=== PATIENT | female | born 1950 | race Caucasian/White ===

== ENCOUNTER 2020-11-20 13:07 | Day surgery (SDC) | payer OTHER, SELFPAY ==
[2020-11-16 07:36] VITALS: BMI 25.0
[2020-11-20] VITALS (19 sets, daily range): BP systolic 99–130; BP diastolic 58–102; PULSE 55–80; RESP 10–20; TEMP 36.3–37.5; O2SAT 93–100; BMI 25.0
--- NOTE | 2020-11-20 | PATH_ITS ---
[facility] Accession Number: [id number] . 01 Material submitted: . gallbladder - GALLBLADDER AND CONTENTS . 01 Clinical history: . SDC . 02 Diagnosis: Gallbladder and Contents, Cholecystectomy: Cholelithiasis. No evidence of neoplasm. [facility] 11/22/2020 1057 Local . 02 Electronically signed: . Wes Hamlin MD, PhD, Pathologist NPI- [id number] . 01 Gross description: . The specimen is received in formalin, labeled gallbladder and contents and consists of an 8.5 x 3.5 x 3.2 cm intact gallbladder with a 0.2 cm in diameter cystic duct. The serosa is green-salas and smooth. Opening reveals green viscous bile with multiple brown multifaceted choleliths ranging from 0.2-1.5 cm. The mucosa is farr-green and velvety, and the wall thickness measures 0.1 cm. Fund Controller sections are submitted, to include the en face cystic duct margin (blue), in cassette A1. ([id number]) /[facility] 11/21/2020 1035 Local . 02 Pathologist provided ICD-10: K80.50 . 02 CPT . 836185 Performed at: 01 [facility] [address], [place], [place] [id number] MD Ludwin Hill MD Phone: [phone] Performed at: 02 [facility] [address] [place], [place] [id number] MD Lo Flores MD Phone: [phone]
[2020-11-20 14:01] LABS: COVID19 -Nasal RAPID Negative
[2020-11-20] MEDS: LACTATED RINGERS 1,000 ML 42 ML IV (14:32)
[2020-11-20] MEDS: ACETAMINOPHEN 325 MG TABLET 975 MG PO (14:37)
--- NOTE | 2020-11-20 14:47 | PM.PREOP ---
Pre-operative Note Interval Note History & Physical reviewed/Exam performed by Physician: Yes Changes to H&P: No
[2020-11-20] MEDS: levoFLOXacin 500 MG/100 ML PIGGYBACK 100 MG IV (15:15)
--- NOTE | 2020-11-20 15:32 | SUR.OPER ---
Supine on padded OR bed, head on pillow, safety belt at thigh, left arm padded and tucked at side. Right arm secured on padded arm board <90 degrees abduction. Legs uncrossed. Padded footboard in place. Tape over blanket to secure lower legs.
[2020-11-20] MEDS: BUPIVACAINE 0.25% (PF) VIAL 30 ML INJ (15:40)
--- NOTE | 2020-11-20 16:20 | P.OP_ITS ---
Operative Date/Time/Diagnoses Date of procedure: 11/20/20 Time of procedure: 16:20 Pre-op diagnosis: Biliary colic Post-op diagnosis: same Procedure & Clinicians Procedure: Laparoscopic cholecystectomy Same procedure as scheduled: Yes Indications: Biliary colic Surgeon: Kevin Luna Click Yes if Unassisted: Yes Anesthesia Type: General Operative Notes Findings: Critical view of safety, gallbladder with stones Specimen(s): other Prosthetic devices, grafts, tissues, transplants, or devices: Gallbladder Estimated Blood Loss (mL): 40 Procedure in detail: The patient was placed supine on the table and bilateral lower extremity compression devices were applied. Anesthesia was induced they were intubated with an endotracheal tube and received 2g of Ancef. A time-out was performed. They were prepped and draped in sterile fashion. An infraumbilical incision was made, the umbilical stalk was elevated and the fascia was sharply incised entering the abdomen atraumatically. A blunt tip 12mm balloon trocar was then inserted, pneumoperitoneum was established and inspection of the abdomen demonstrated no evidence of injury. They were placed head up and right side up and then a 11 mm port was placed high in the epigastrium and two 5mm in the right upper quadrant. Gallbladder was inflamed with some flimsy adhesions between the omentum and the gallbladder were taken down carefully. Gallbladder was grasped by the fundus and retracted over the l iver and retracted laterally by the infundibulum. Using electrocautery the lateral plane between the gallbladder and the liver was opened towards the fundus. The gallbladder was then retracted laterally and the medial plane was developed in the same manner. With the gallbladder mobilized the bottom of the cystic plate was visualized. The hepatocystic triangle was meticulosly skeletonized using hook electrocautery of all fat and fibrous tissue from both the front and the back. Only two structures were then clearly seen entering the gallbladder the cystic duct and the cystic artery. With the critical view of safety fully established the cystic duct was clipped twice proximally and once distally using the 10 mm clip applied under direct visualization and then sharply divided. The cystic artery was divided in the same fashion. The gallbladder was removed from the liver bed using electro cautery. The liver bed was then inspected for hemostasis and this was achieved. The abdomen was irrigated with sterile saline and inspection was made that showed the clips in good position. The specimen was removed using Endo-Catch. The abdomen was desufflated. The umbilical fascia was closed with 0 Vicryl in a [id number]-[id number] fashion under direct visualization. Skin incisions were irrigated and closed with 4-0 Monocryl. 30 ml of 0.25% bupivacaine was infiltrated into the subcutaneous tissue of the incisions. The wounds were sealed with Dermabond. Patient emerged from anesthesia was extubated and transferred to recovery in stable condition. The sponge and instrument count at the end of the operation was correct. Complications: none Post-operative Condition: stable Disposition: same day surgery
[2020-11-20] MEDS: ONDANSETRON 4 MG/2 ML INJ IV ×2 (16:24→16:55)
[2020-11-20] MEDS: fentaNYL 100 MCG/2 ML INJ IV ×4 (16:25→16:50)
[2020-11-20] MEDS: HYDROMORPHONE 2 MG INJ IV ×4 (17:01→17:21)
[2020-11-20] MEDS: OXYCODONE IR 5 MG TABLET PO ×2 (17:18→17:41)
[2020-11-20] MEDS: HALOPERIDOL 5 MG/ML VIAL 2 MG IV (17:34)
--- NOTE | 2020-11-20 18:37 | SUR.PHASEII ---
Drsg's dry and intact. Ice remains on abd. Dr Luna notified to change prescription to [facility] as [facility] is closed. Pt sleeping intermittently. Ice chips given.
--- NOTE | 2020-11-20 19:09 | SUR.PHASEII ---
Assumed care from previous RN. Patient resting quietly in stretcher on her left side; vss. Dressings to abdomen x 4 clean, dry and intact. at pharmacy picking up prescriptions. Encouraged patient to sit up and move around some due to pending discharge. Patient rates pain a 4/10 with mild nausea. Explained to patient that abdominal pain would be expected and that she might have pain for several days due to surgery. V/U.
--- NOTE | 2020-11-20 19:41 | SUR.PHASEII ---
Dicharged patient in stable condition with to home. All discharge instructions reviewed with and patient. To car viai wheelchair.
--- NOTE | 2020-12-06 09:44 | P.OP_ITS ---
Operative Date/Time/Diagnoses Date of procedure: 12/04/20 Time of procedure: 09:45 Pre-op diagnosis: Biliary colic Post-op diagnosis: same Procedure & Clinicians Procedure: Laparoscopic cholecystectomy Same procedure as scheduled: Yes Indications: Biliary colic Surgeon: Kevin Luna Operative Notes Findings: Critical view of safety. Chronic cholecystitis Estimated Blood Loss (mL): 30 Procedure in detail: The patient was placed supine on the table and bilateral lower extremity compression devices were applied. Anesthesia was induced they were intubated with an endotracheal tube and received 2g of Ancef. A time-out was performed. They were prepped and draped in sterile fashion. An infraumbilical incision was made, the umbilical stalk was elevated and the fascia was sharply incised entering the abdomen atraumatically. A blunt tip 12mm balloon trocar was then inserted, pneumoperitoneum was established and inspection of the abdomen demonstrated no evidence of injury. They were placed head up and right side up and then a 11 mm port was placed high in the epigastrium and two 5mm in the right upper quadrant. There were adhesions between the omentum and the gallbladder that were taken down carefully consistent with a history of chronic cholecystitis. Gallbladder was grasped by the fundus and retracted over the liver and retracted laterally by the infundib ulum. Using electrocautery the lateral plane between the gallbladder and the liver was opened towards the fundus. The gallbladder was then retracted laterally and the medial plane was developed in the same manner. With the gallbladder mobilized the bottom of the cystic plate was visualized. The hepatocystic triangle was meticulosly skeletonized using hook electrocautery of all fat and fibrous tissue from both the front and the back. Only two structures were then clearly seen entering the gallbladder the cystic duct and the cystic artery. With the critical view of safety fully established the cystic duct was clipped twice proximally and once distally using the 10 mm Weck hemo clip applied under direct visualization and then sharply divided. The cystic artery was divided in the same fashion. The gallbladder was removed from the liver bed using electro cautery. The liver bed was then inspected for hemostasis and this was achieved. The abdomen was irrigated with sterile saline and inspection was made that showed the clips in good position. The specimen was removed using Endo-Catch. The abdomen was desufflated. The umbilical fascia was closed with 0 Vicryl in a dtrdbi-ig-duncj fashion under direct visualization. Skin incisions were irrigated and closed with 4-0 Monocryl. 30 ml of 0.25% bupivacaine was infiltrated into the subcutaneous tissue of the incisions. The wounds were sealed with Dermabond. Patient emerged from anesthesia was extubated and transferred to recovery in stable condition. The sponge and instrument count at the end of the operation was correct. Complications: none Post-operative Condition: stable Disposition: same day surgery
== END 2020-11-20 19:39 | disposition home or self-care (01) ==
PROVIDERS: PCP Student in an Organized Health Care Education/Training Program; Referring Provider Student in an Organized Health Care Education/Training Program; Visit Provider Surgery
PROC: 0FT44ZZ Resection of Gallbladder, Percutaneous Endoscopic Approach (ICD-10-PCS; CPT 47562; principal; 2020-11-20 15:00)
DX: K80.20 Calculus of gallbladder without cholecystitis without obstruction (principal); Z20.822 Contact with and (suspected) exposure to COVID-19
CPT/HCPCS: 47562; 82962; 87635; J1100; J1170; J1630; J1885; J1956; J2405; J2704; J3010

== ENCOUNTER → 2024-06-23 16:14 | Outpatient (CLI) | payer OTHER, SELFPAY ==
--- NOTE | 2024-06-23 16:44 | DI.MRI.S_ITS ---
PROCEDURE: MR HIP LT WO CON INDICATIONS: PAIN LT HIP/HAMSTRING TENDONITIS,R/O ABDUCT TEAR TECHNIQUE: Noncontrast coronal T1 spin echo and STIR through the bony pelvis. Coronal and axial T2 fast spin echo with fat saturation, sagittal T1 spin echo, and oblique axial T2 fast spin echo with fat saturation through the hip. COMPARISON: [facility] [place], CR, XR PELVIS WITH LATERAL HIP LEFT, 06/16/2024, 9:45. FINDINGS: Image quality: Excellent. Bones and joints: Marrow signal of the visualized lower lumbar spine is unremarkable. The sacrum is intact the bilateral sacroiliac joints are unremarkable. Mild degenerative changes of the right hip with subchondral cystic changes in the superior right acetabulum. 1.1 cm mildly T1 hypointense, T2 hyperintense lesion in the right intertrochanteric femur, nonspecific. Mild degenerative changes the left hip. No acute fracture or dislocation of either hip. No avascular necrosis of either femoral head. Tendons and ligaments: The left iliopsoas, adductortendons are unremarkable. Mild tendinosis of the hamstring tendons, without tear. The left gluteal minimus is unremarkable. The left gluteal medius tendon is intact. Trace left greater trochanteric bursitis. Labrum and cartilage: Circumferential labral tear. No paralabral cyst. Soft tissues: Bladder stimulator, creating artifacts and limits evaluation. There is a 3.6 cm lesion in the right adnexa, containing T1 and T2 hypointense material immediately abutting the uterus, which may represent a uterine fibroid versus enlarged right ovary. IMPRESSION: 1. Mild degenerative changes of bilateral hips. 2. Mild tendinosis of the left hamstring tendons, without tear. 3. Trace left greater trochanteric bursitis. Intact left gluteal minimus and medius tendon. 4. 3.6 cm lesion in the right adnexa, which may represent a uterine fibroid versus enlarged right ovary, incompletely evaluated. Recommend further evaluation with pelvic ultrasound. Dictated by: Clara Saeed M.D. on 06/24/2024 at 9:16 Approved by: Clara Saeed M.D. on 06/24/2024 at 9:30
== END ==
LOC: MRI 16:15
PROVIDERS: PCP Internal Medicine; Referring Provider Orthopaedic Surgery; Visit Provider Orthopaedic Surgery
DX: S73.102A Unspecified sprain of left hip, initial encounter (principal); M25.552 Pain in left hip; N94.9 Unspecified condition associated with female genital organs and menstrual cycle
CPT/HCPCS: 73721

== ENCOUNTER → 2024-07-12 13:41 | Outpatient (CLI) | payer OTHER, SELFPAY ==
--- NOTE | 2024-07-12 13:43 | DI.US.S_ITS ---
PROCEDURE: US PELVIC COMPLETE INDICATIONS: SPEC. COND. ASSOCIATED WITH FEMALE GEN ORGANS TECHNIQUE: Real-time scanning was performed of the pelvic organs, with image documentation. Additional endovaginal scanning was necessary due to incomplete visualization of the adnexal and endometrial structures by transabdominal scanning. COMPARISON: [facility] [place], CR, XR PELVIS WITH LATERAL HIP LEFT, 06/16/2024, 9:45. [facility], MR, MR HIP LT WO CON, 06/23/2024, 16:31. FINDINGS: Uterus: Uterus is anteverted and normal in size at 7.3 x 5.7 x 4.1 cm. The myometrium is heterogenous. The endometrium measures 4 mm in combined thickness. There is a right anterior subserosal 1.6 x 2.0 x 1.5 cm fibroid as well as a left posterior subserosal 0.7 x 1.1 x 0.6 cm fibroid. Ovaries: The right ovary measures 2.0 x 1.3 x 1.0 cm, with a calculated ovarian volume of 1.3 cc. The left ovary measures 1.8 x 1.3 x 1.1 cm, with a calculated ovarian volume of 1.3 cc. Vascular flow to the ovaries cannot be confirmed due to their posterior location. Otherwise, less than 12 follicles are present in the ovaries. Other: No pathologic free abdominal or pelvic fluid. Small amount of fluid in the cervix, possibly physiologic IMPRESSION: 1. Leiomyomatous uterus, accounting for the MRI left hip findings. 2. No abnormal adnexal lesion. 3. Limited evaluation of the ovaries due to their posterior location. We strive to produce accurate, complete, and clear reports of imaging services. To assist us in improving patient care, this report was composed using standard report templates and voice recognition software. Therefore, it may contain abnormal punctuation, insertions and/or omissions. Occasional wrong-word or sound-alike substitutions may occur. Though we review the report and make efforts to correct it, we do recommend that the report be read carefully in proper context to recognize any text inaccuracies. Dictated by: Barrington Shelton M.D. on 07/12/2024 at 16:26 Approved by: Barrington Shelton M.D. on 07/12/2024 at 16:30
== END ==
PROVIDERS: PCP Internal Medicine; Referring Provider Internal Medicine; Visit Provider Internal Medicine
DX: N94.89 Other specified conditions associated with female genital organs and menstrual cycle (principal); D25.2 Subserosal leiomyoma of uterus
CPT/HCPCS: 76830; 76856

== ENCOUNTER → 2024-09-29 08:53 | Outpatient (CLI) | payer OTHER, SELFPAY ==
--- NOTE | 2024-09-29 08:55 | DI.MRI.S_ITS ---
PROCEDURE: MR LUMBAR SPINE WO CON INDICATIONS: RADICULOPATHY/LOWER BACK PAIN TECHNIQUE: Noncontrast sagittal T1 spin echo and T2 fast echo, sagittal STIR, and T2 fast spin echo through the lumbar spine. In cases with scoliosis, additional coronal T2 fast spin echo may be performed. COMPARISON: None. FINDINGS: Image quality: Excellent. Alignment and Curvature: Straightening of the normal lumbar lordosis. Bone Marrow: Marrow is of normal overall signal. No acute vertebral body compression fractures. Spinal Cord: Conus medullaris terminates at the L1 level. Visualized cord demonstrates normal signal and size. Paraspinous Soft Tissues: No paravertebral masses. T12-L1: Normal appearance. L1-L2: Normal appearance. L2-L3: Normal appearance. L3-L4: Mild facet arthropathy. No central canal or neural foraminal stenosis. L4-L5: Disc desiccation and minimal disc bulge. Facet arthropathy. No central canal or neural foraminal stenosis. L5-S1: Disc desiccation and moderate height loss. Mild disc bulge with superimposed annular fissure. Mild facet arthropathy. No central canal or neural foraminal stenosis. IMPRESSION: Mild degenerative changes of the lumbar spine without significant central canal or neural foraminal stenosis. Dictated by: Vern Coyne M.D. on 09/29/2024 at 12:10 Approved by: Vern Coyne M.D. on 09/29/2024 at 12:13
== END ==
LOC: MRI 08:54
PROVIDERS: PCP Internal Medicine; Referring Provider Internal Medicine; Visit Provider Orthopaedic Surgery
DX: M47.26 Other spondylosis with radiculopathy, lumbar region (principal); M47.27 Other spondylosis with radiculopathy, lumbosacral region
CPT/HCPCS: 72148